=== PATIENT | male | born 1990 | race Caucasian/White ===

== ENCOUNTER 2022-10-14 14:00 | Emergency (ER) | payer BC, SELFPAY ==
[2022-10-14 14:49] VITALS: BP 138/79; PULSE 86; RESP 16; TEMP 35.9; O2SAT 98
--- NOTE | 2022-10-14 14:53 | ED.GENADULT ---
HPI - General Adult General Chief complaint: Upper Respiratory Infection Stated complaint: sorethroat,cough,congestion Time Seen by Provider: 10/14/22 14:40 History of Present Illness HPI narrative: 31 y/o male. PMHx: None reported. Presents to [facility] today with acute complaints of body aches, chills, fever, nasal congestion, & sore throat for the past few days. Multiple other family members and children at home, ill with similar issues. Fever at home, no ANDINO, focal weakness, neck stiffness, seizure activity. Denies chest pain, palpitations, dyspnea, wheezing. No GI upset, N/V/D. Related Data Home Medications Medication Instructions Recorded Confirmed No Home Medications 10/14/22 10/14/22 Allergies Allergy/AdvReac Type Severity Reaction Status Date / Time No Known Allergies Allergy Verified 10/14/22 15:26 Review of Systems Review of Systems: CONSTITUTIONAL: Positive fever, chills, body aches. EYES: Denies visual changes, redness, discharge. ENT: Positive rhinorrhea, congestion, sore throat. No otalgia. CARDIOVASCULAR: Denies chest pain, palpitations, edema. RESPIRATORY: Denies dyspnea, wheezing, cough. GASTROINTESTINAL: Denies abdominal pain, nausea, vomiting, diarrhea. All other systems have been reviewed: Unless noted remaining ROS Negative. Exam Narrative: GENERAL: This is a well-nourished, well-developed adult, in no apparent distress. HEAD: normocephalic, atraumatic. EYES: PERRL. Sclera clear/white. EARS: External ears normal, auditory canals clear and without drainage, TMs bulging. NOSE: External nose normal. Positive Rhinorrhea, no obstruction, nares patent. THROAT: Mucous membranes moist, posterior pharynx is erythematous, no exudates. No gross swelling, uvula midline, palate soft. NECK: Neck supple, non-tender. With mild LT cervical lymphadenopathy. No masses or thyromegaly. No meningeal signs. CARDIOVASCULAR: Regular rate and rhythm without murmurs, gallops, or rubs. RESPIRATORY: Clear to auscultation. Breath sounds equal bilaterally. No wheezes, rales, or rhonchi. GASTROINTESTINAL: Abdomen soft, non-tender, nondistended. Bowel sounds are active. No guarding. SKIN: warm, intact with no suspicious lesions or rash, good texture and turgor. NEURO: Alert, active, and age appropriate. No focal neurologic deficits. Course Course Level of Care: Express Care Visit Vital Signs Vital signs: Vital Signs Temperature 35.9 C L 10/14/22 14:49 Pulse Rate 86 10/14/22 14:49 Respiratory Rate 16 10/14/22 14:49 Blood Pressure 138/79 10/14/22 14:49 Pulse Oximetry 98 10/14/22 14:49 Temperature 35.9 C L 10/14/22 14:49 Pulse Rate 86 10/14/22 14:49 Respiratory Rate 16 10/14/22 14:49 Blood Pressure 138/79 10/14/22 14:49 Pulse Oximetry 98 10/14/22 14:49 Medical Decision Making MDM Narrative Medical decision making narrative: -Covid: Negative. -Influenza: Negative. -Rapid strep: POSITIVE. -OP Amoxicillin regimen as directed. -Additional OTC remedies prn for other symptomatic reliefs. -PCP F/U 1WK. -ER W/Emergent status changes. Pt agrees. Differential Diagnosis Differential Diagnosis: Differential Diagnosis: Consideration of the following conditions may be warranted for the presenting problem, they are not final diagnoses: upper respiratory infection, otitis media, sinusitis, RSV viral infection, PNA, bronchitis, pharyngitis, Streptococcal sore throat, COVID-19, Influenza, and other. Vital Signs Vital Signs: Vital Signs Temperature 35.9 C L 10/14/22 14:49 Pulse Rate 86 10/14/22 14:49 Respiratory Rate 16 10/14/22 14:49 Blood Pressure 138/79 10/14/22 14:49 Pulse Oximetry 98 10/14/22 14:49 Temperature 35.9 C L 10/14/22 14:49 Pulse Rate 86 10/14/22 14:49 Respiratory Rate 16 10/14/22 14:49 Blood Pressure 138/79 10/14/22 14:49 Pulse Oximetry 98 10/14/22 14:49 Lab Data Labs: Influenza A
== END 2022-10-14 16:19 | disposition home or self-care (01) ==
PROVIDERS: Emergency Provider Nurse Practitioner Adult Health; PCP Family Medicine
DX: J02.0 Streptococcal pharyngitis (principal); Z20.822 Contact with and (suspected) exposure to COVID-19
CPT/HCPCS: 87426; 87804; 87880; 99213; C9803; G0463